=== PATIENT | male | born 1995 | race Caucasian/White ===

== ENCOUNTER 2022-11-23 13:37 | Emergency (ER) | payer SELFPAY ==
[2022-11-23 14:06] VITALS: BP 148/87; PULSE 93; RESP 17; TEMP 36.6; O2SAT 95; BMI 30.1
--- NOTE | 2022-11-23 16:10 | ED_ITS ---
HPI - Extremity Problem General: Chief complaint: Extremity Problem,Nontraumatic Stated complaint: Ingrown toe nail Time Seen by Provider: 11/23/22 15:52 Source: patient Mode of arrival: ambulatory History of Present Illness: 26-year-old male presents emergency room with a left lateral ingrown toenail has been present for last couple days had some drainage. He was seen in the walk-in clinic presented here he was wanting to have the toenail resected here. Patient is not diabetic he also has some scaling and cracking of calluses on his feet he has 1 area that is denuded and there is tender underlying skin no drainage no in fection its in the left arch. Onset (ago): day(s) Pain Consistency: constant Location: left and toe (Great toe) Quality: sharp Relieving factors: other (Elevation) Exacerbating factors: weight bearing, walking and palpation Associated symptoms: Deny arthralgias, chest pain, fever(s), myalgias, short of breath or other Review of Systems Const: Denies: fever(s) or chills Card: Denies: chest pain Resp: Denies: dyspnea Skin/Breast: Reports: skin tenderness and nail changes Physical Exam Const: GENERAL APPEARANCE: cooperative and comfortable ORIENTATION/CONSCIOUSNESS: Yes awake, Yes oriented to person, Yes oriented to place and Yes oriented to time Neuro: SENSORIUM/ORIENTATION: Yes oriented to person, Yes oriented to place and Yes oriented to time Skin: OTHER: Left lateral ingrown toenail with some evidence of cellulitis with purulent drainage locally. No popliteal fossa lymphadenopathy Course Vital Signs: Vital signs: Vital Signs Temperature 97.9 F 11/23/22 14:06 Pulse Rate 93 11/23/22 14:06 Respiratory Rate 17 11/23/22 14:06 Blood Pressure 148/87 11/23/22 14:06 Pulse Oximetry 95 11/23/22 14:06 Oxygen Delivery Me thod Room Air 11/23/22 14:06 MDM - Extremity (Nontraumatic) Medical Decision Making Started on oral antibiotics refer to podiatry for wedge resection of the nail later today Discharge Plan Discharge Patient Disposition: Home Clinical Impression: Ingrown left big toenail Condition: Stable Prescriptions: New amoxicillin-pot clavulanate 875-125 mg tablet 1 tab PO BID Qty: 14 0RF Discharge Orders: Discharge ED (Routine); Ordered 11/23/22 Ordered By: Adrian Ochoa Discharge Diet: Usual diet Discharge Activity: Increase activity as tolerated Patient Instructions: Opioid Safety, Pain Management Activity Restrictions/Additional Instructions: Case management make arrangements for follow-up with podiatry for resection of the toenail. Coding Level of Care Code ED Construction Superintendent for Deniz Cevallos
--- NOTE | 2022-11-26 07:40 | DCPLANNER ---
Addendum entered by Lise Klein 12/27/22 12:26: This appointment was rescheduled Addendum entered by Lise Klein 12/05/22 12:11: Patient has a follow up appointment scheduled for November at 11:[address] Krause at [facility]. Original Note: bridge club manager had message to schedule a follow up appointment for patient with podiatry. bridge club manager sent patients information to the front office staff at podiatry. Patients information will be printed and reviewed. Clinic will call patient with appointment information.
--- NOTE | 2022-11-26 11:33 | DCPLANNER ---
mobile development manager was triggered to call patient due no primary care physician - patient does not live in the area.
== END 2022-11-23 16:25 | disposition home or self-care (01) ==
PROVIDERS: Emergency Provider Family Medicine
DX: L60.0 Ingrowing nail (principal)
CPT/HCPCS: 99283